=== PATIENT | male | born 1995 | race African-American/Black ===

== ENCOUNTER 2021-06-19 07:45 | Emergency (ER) | payer SELFPAY ==
[2021-06-19] MEDS ORDERED: Boostrix 0.5 ML (Tdap) VIAL ONE (08:04)
[2021-06-19] MEDS ORDERED: Lidocaine 1% w/Epinephrine 1:100K 20 ML VIAL ONE (08:07)
== END 2021-06-19 08:31 | disposition home or self-care (01) ==
LOC: ERS 07:45
DX: S61.411A Laceration without foreign body of right hand, initial encounter (principal); Z23 Encounter for immunization; W25.XXXA Contact with sharp glass, initial encounter
CPT/HCPCS: 12001; 90471; 90715

== ENCOUNTER 2021-10-28 00:19 | Emergency (ER) | payer SELFPAY ==
[2021-10-28 12:12] LABS: SARS-CoV-2 PCR by NAA Not Detected (NotDetected)
== END 2021-10-28 01:18 | disposition home or self-care (01) ==
LOC: ERS 00:19
DX: J02.9 Acute pharyngitis, unspecified (principal); Z20.822 Contact with and (suspected) exposure to COVID-19
CPT/HCPCS: 87081; 87430; 87804; 99283; U0003; U0005